=== PATIENT | female | born 1955 | race Caucasian/White ===

== ENCOUNTER → 2016-11-06 | Outpatient (CLI) | payer OTHER ==
[~2016-11-06] MED LIST: KEFLEX 500MG.500 MG PO; LISINOPRIL 20MG20 MG PO; OMEPRAZOLE20 MG PO
--- NOTE | 2016-11-08 07:19 | RADIOLOGY REPORT PS360 ---
EXAM: CT LUNG LOW DOSE WO CONTRAST COMPARISON: None HISTORY: 61 year old female with greater than 35 pack-year smoking history. Quit smoking 10 years ago ORDERING PHYSICIAN: JARED ORTIZ MD PATIENT AGE: 61 years TECHNIQUE: The exam was performed on a GE Light Speed [address] scanner using 2.94 mGy CTDI. A low dose helical CT CHEST was performed on a multi-detector scanner The LDCT was performed in a facility that meets the criteria for the screening program. Data regarding this exam was submitted to ACR which is an approved registry. The order for this exam indicates that it came as a result of a lung cancer screening counseling shard decision-making visit that included all the elements required of such a visit including smoking cessation. The radiologist interpreting this exam meets the CMS criteria for the LDCT lung cancer screening program. The exam is reported using the Lung-RADS classification scale and reported to the ACR registry. NOTE: This study was performed for the specific purposes of lung cancer screening and is not an alternative to diagnostic chest CT. RADIATION DOSE: CTDI vol(CT dose Index-volume) = 2.94mG DLP (Dose Length Product) = 105.52 mGcm FINDINGS: Calcified granuloma right apex Centrilobular images changes with scattered areas of pulmonary fibrosis OTHER FINDINGS: No other pertinent findings evident IMPRESSION: 1. Lung RADS Category: 2, benign 2. Other findings: Centrilobular emphysematous change with pulmonary fibrosis RECOMMENDATIONS: 12 month LDCT screening
== END ==
LOC: RAD 10-31 15:30
DX: Z87.891 Personal history of nicotine dependence (principal); Z12.2 Encounter for screening for malignant neoplasm of respiratory organs; J44.9 Chronic obstructive pulmonary disease, unspecified; J30.9 Allergic rhinitis, unspecified
CPT/HCPCS: G0297